=== PATIENT | male | born 1960 | race Two or more races ===

== ENCOUNTER 2019-05-25 20:00 | Inpatient (IN) | payer OTHER ==
[~2019-05-25] VITALS: Ht 172.7 cm; Wt 136.1 kg
--- NOTE | 2019-05-25 20:57 | NUR ---
PT WALKED INTO EMERGENCY ROOM FOR IRRITATION OF ABDOMINAL HERNIA. PT HAS HAD HERNIA CHRONICALLY HOWEVER NOW PAINFUL . PT ALERT AND ORIENTED X 4. WILL CONTINUE TO MONITOR
[2019-05-25 21:10] LABS: BASOPHILS % (AUTO) 0.4 % (0.0-2.0); EOSINOPHILS % (AUTO) 1.5 % (0.0-6.0); HEMATOCRIT 39 % (39-51); HEMOGLOBIN 12.6 g/dL (13.5-17.5); LYMPHOCYTES # (AUTO) 2.2 /CMM (0.8-4.8); LYMPHOCYTES % (AUTO) 20.6 % (20.0-44.0); MEAN CORPUSCULAR HGB CONC 33 g/dl (31.0-36.0); MEAN CORPUSCULAR VOLUME 83 fL (80-96); MONOCYTES # (AUTO) 0.9 /CMM (0.1-1.30); MONOCYTES % (AUTO) 8.2 % (2.0-12.0); NEUTROPHILS # (AUTO) 7.3 /CMM (1.8-8.9); NEUTROPHILS % (AUTO) 69.3 % (43.0-81.0); PLATELET COUNT (AUTO) 285 /CMM (150-450); RED BLOOD CELL COUNT(AUTO) 4.69 MIL/uL (4.5-6.0); WHITE BLOOD COUNT (AUTO) 10.6 K/uL (4.3-11.0)
[2019-05-25 21:34] LABS: ALBUMIN 3.8 g/dL (3.4-5.0); BILIRUBIN,DIRECT 0.1 mg/dL (0.0-0.2); BILIRUBIN,TOTAL 0.6 mg/dL (0.2-1.0); CALCIUM, SERUM 9.5 mg/dL (8.5-10.1); POTASSIUM 3.9 mmol/L (3.5-5.1); TOTAL PROTEIN, SERUM 8.3 g/dL (6.4-8.2)
[2019-05-25] MEDS ORDERED: IOHEXOL-300 100 ML VIAL IV ONE (21:48)
[2019-05-25] MEDS ORDERED: IV NS 0.9% 250 ML IV ONE (21:49)
--- NOTE | 2019-05-25 21:56 | NUR ---
PIV ESTABLISHED LABS DRAWN PT FEELS UNCOMFORTABLE IN GURNEY PLACED IN CHAIR NEXT TO BED REMAINS MONITORED.
--- NOTE | 2019-05-25 22:04 | NUR ---
PT TAKEN TO CT SCAN
--- NOTE | 2019-05-26 02:29 | NUR ---
REPORT GIVEN TO NED JULIO FOR HELGA PT WILL BE TRANSPORTED TO 1ST FLOOR
--- NOTE | 2019-05-26 03:02 | NUR ---
PT TRANSPORTED TO 1ST FLOOR
--- NOTE | 2019-05-26 03:25 | NUR ---
RN NOTES NOTED WITH PERIPHERAL IV LINE ON HIS RIGHT ANTECUBITAL G#20.
[2019-05-26 03:30] VITALS: BP 142/98
[2019-05-26] MEDS ORDERED: ZOLPIDEM TARTRATE 5 MG TABLET PO PRN (03:30)
[2019-05-26] MEDS ORDERED: ACETAMINOPHEN 325 MG TABLET PO PRN (03:30)
[2019-05-26] MEDS ORDERED: MAG HYDROX/AL HYDROX/SIMETH 30 ML UDC PO PRN (03:30)
[2019-05-26] MEDS ORDERED: Z GUARD REMEDY 2 OZ OINT TP PRN (03:30)
[2019-05-26] MEDS ORDERED: ONDANSETRON HCL/PF 4 MG/2 ML VIAL IVP PRN (03:30)
[2019-05-26] MEDS ORDERED: MAGNESIUM HYDROXIDE 30 ML UDC PO PRN (03:30)
[2019-05-26] MEDS ORDERED: MORPHINE SULFATE INJ 2 MG/ML DISP.SYRIN IV PRN (03:30)
--- NOTE | 2019-05-26 03:30 | NUR ---
RN NOTES ADMITTED PATIENT FROM ER TRANSPORTED VIA WHEELCHAIR. ADMISSION PROCESS AND INITIAL PHYSICAL ASSESSMENT INITIATED. ALERT ORIENTED X4, PAIN AROUND THE UMBILICAL REGION DUE TO SWOLLEN UMBILICAL HERNIA, PATIENT STATES THAT HE DOESN'T WANT TO TAKE ANY MEDICATION AT THIS TIME, ORIENTED TO ROOM AND THE USE OF CALL LIGHT, REPOSITIONED FOR COMFORT, SAFETY MEASURES IN PLACE, SKIN IS INTACT, SWOLLEN UMBILICAL HERNIA NOTED, PHOTO TAKEN AND PLACED IN THE PATIENT'S CHART, ALL NEEDS ANTICIPATED. WILL CONTINUE TO MONITOR ACCORDINGLY.
[2019-05-26] MEDS ORDERED: PIPERACILLIN /TAZOBACTAM 3.375 G VIAL IV ONE (05:27)
[2019-05-26] MEDS: IV NS 0.9% 1,000 ML IV PRN (05:34)
[2019-05-26] MEDS ORDERED: PIPERACILLIN /TAZOBACTAM 3.375 G in IV D5W 50 ML IV SCH (06:00)
[2019-05-26] MEDS ORDERED: ZOSYN IVPB 3.375 G in IV D5W 50ml IV ONE (06:00)
--- NOTE | 2019-05-26 07:20 | NUR ---
RN NOTES ALL NEEDS ATTENDED KEPT CLEAN DRY AND COMFORTABLE. ENDORSED TO AM NURSE IN STABLE CONDITION,
--- NOTE | 2019-05-26 07:25 | NUR ---
INITIAL PATIENT LYING IN BED ALARMS ON RAILS UP X 3. . ALERT ORIENTED X4, PAIN AROUND THE UMBILICAL REGION DUE TO SWOLLEN UMBILICAL HERNIA, ORIENTED TO ROOM AND THE USE OF CALL LIGHT, REPOSITIONED FOR COMFORT, SAFETY MEASURES IN PLACE, SKIN IS INTACT, SWOLLEN UMBILICAL HERNIA NOTED, PHOTO ARE TAKEN AND PLACED IN THE PATIENT'S CHART, ALL NEEDS ANTICIPATED. WILL CONTINUE TO MONITOR ACCORDINGLY.
[2019-05-26 07:45] LABS: BASOPHILS % (AUTO) 0.3 % (0.0-2.0); EOSINOPHILS % (AUTO) 3.3 % (0.0-6.0); HEMATOCRIT 36 % (39-51); HEMOGLOBIN 11.7 g/dL (13.5-17.5); LYMPHOCYTES # (AUTO) 2.2 /CMM (0.8-4.8); LYMPHOCYTES % (AUTO) 26.9 % (20.0-44.0); MEAN CORPUSCULAR HGB CONC 32 g/dl (31.0-36.0); MEAN CORPUSCULAR VOLUME 83 fL (80-96); MONOCYTES % (AUTO) 12.6 % (2.0-12.0); NEUTROPHILS # (AUTO) 4.7 /CMM (1.8-8.9); NEUTROPHILS % (AUTO) 56.9 % (43.0-81.0); PLATELET COUNT (AUTO) 242 /CMM (150-450); RED BLOOD CELL COUNT(AUTO) 4.37 MIL/uL (4.5-6.0); WHITE BLOOD COUNT (AUTO) 8.2 K/uL (4.3-11.0)
[2019-05-26 08:00] VITALS: BP 136/86
[2019-05-26 08:03] LABS: ALBUMIN 3.3 g/dL (3.4-5.0); BILIRUBIN,TOTAL 0.8 mg/dL (0.2-1.0); CALCIUM, SERUM 8.7 mg/dL (8.5-10.1); MAGNESIUM 1.9 mg/dL (1.8-2.4); PHOSPHORUS 3.7 mg/dL (2.5-4.9); POTASSIUM 3.6 mmol/L (3.5-5.1); TOTAL PROTEIN, SERUM 7.3 g/dL (6.4-8.2)
[2019-05-26 08:13] LABS: THYROID STIMULATING HORMONE 3.22 uIU/mL (0.358-3.74)
[2019-05-26] MEDS: PIPERACILLIN /TAZOBACTAM 3.375 G in IV D5W 100 ML IV SCH ×2 (12:49→21:09)
[2019-05-26 16:00] VITALS: BP 155/90
--- NOTE | 2019-05-26 19:10 | NUR ---
RN OPENING NOTE: RECEIVED PATIENT IN BED. AWAKE, ALERT AND ORIENTED X4. ON ROOM AIR AND TOLERATING WELL. NO SOB, NO DISTRESS NOTED. BREATHING EQUAL AND UNLABORED. SATURATION >92%. PATIENT IS AMBULATORY WITH STEADY GAIT. REPORTING PAIN OF 6/10 ON HERNIA SITE BUT REFUSES TO TAKE OFFERED PAIN MEDICATION. IV SITE CLEAN, DRY AND INTACT. INFUSION BEING TOLERATED WELL. CALL LIGHT IN REACH. BED LOCKED, LOW AND AT SEMI-LUNSFORD'S POSITION. SIDE RAILS UP X3. NEEDS ANTICIPATED. SAFETY ENSURED AND OBSERVED. WILL CONTINUE TO MONITOR.
[2019-05-26 20:00] VITALS: BP 143/89
[2019-05-27 04:00] VITALS: BP 129/87
[2019-05-27] MEDS: PIPERACILLIN /TAZOBACTAM 3.375 G in IV D5W 100 ML IV SCH ×3 (04:22→21:21)
--- NOTE | 2019-05-27 06:45 | NUR ---
RN CLOSING NOTE: PATIENT STILL IN BED. AWAKE, ALERT AND ORIENTED X4. ON ROOM AIR AND TOLERATING WELL. NO SOB, NO RESPIRATORY DISTRESS NOTED. NO ACUTE CHANGES NOTED ON SHIFT. PATIENT WAS ABLE TO SLEEP COMFORTABLY AND IS INDEPENDENT IN AMBULATION AND HYGIENE. CALL LIGHT IN REACH. BED LOCKED, LOW AND AT SEMI-LUNSFORD'S POSITION. SIDE RAILS UP X3. NEEDS ANTICIPATED. SAFETY ENSURED AND OBSERVED. WILL CONTINUE TO MONITOR. PATIENT AWAITING CONSULT WITH DR. MCGRAW. WILL ENDORSE TO AM SHIFT FOR HELGA.
[2019-05-27 07:39] LABS: BASOPHILS % (AUTO) 0.3 % (0.0-2.0); EOSINOPHILS % (AUTO) 5.5 % (0.0-6.0); HEMATOCRIT 36 % (39-51); HEMOGLOBIN 11.6 g/dL (13.5-17.5); LYMPHOCYTES % (AUTO) 29.7 % (20.0-44.0); MEAN CORPUSCULAR HGB CONC 32 g/dl (31.0-36.0); MEAN CORPUSCULAR VOLUME 84 fL (80-96); MONOCYTES # (AUTO) 0.8 /CMM (0.1-1.30); MONOCYTES % (AUTO) 12.3 % (2.0-12.0); NEUTROPHILS # (AUTO) 3.5 /CMM (1.8-8.9); NEUTROPHILS % (AUTO) 52.2 % (43.0-81.0); PLATELET COUNT (AUTO) 231 /CMM (150-450); RED BLOOD CELL COUNT(AUTO) 4.29 MIL/uL (4.5-6.0); WHITE BLOOD COUNT (AUTO) 6.7 K/uL (4.3-11.0)
--- NOTE | 2019-05-27 07:39 | NUR ---
RN OPENING NOTES Patient received on room air, no sob noted, patient remains a/o x4 at this time and has a full liquid diet. Patient denies pain at this time. R AC 20 with NS of 75 ml per hour running. Awaiting for surgical consult with Dr. Gonzalez. Bed at the lowest setting, call light within reach, side rails up x2.
[2019-05-27 08:00] VITALS: BP 126/86
[2019-05-27 08:02] LABS: CALCIUM, SERUM 8.6 mg/dL (8.5-10.1); CREATININE 0.9 mg/dL (0.6-1.3)
[2019-05-27 12:00] VITALS: BP 129/87
[2019-05-27 16:00] VITALS: BP 148/94
--- NOTE | 2019-05-27 18:25 | NUR ---
RN CLOSING NOTES Patient remains on room air, no sob noted, patient denies pain at this time. Remains a/o x4, on full liquids at this time and to be NPO after midnight today. R AC 20 gauge with NS 75 ml per hour. Patient stated that he will not sign the consent forms until he talks to the surgeon. Surgery is planned tomorrow. Bed at the lowest setting, call light within reach, side rails up x2. Patient able to walk around with good balance. Will give report to NOC RN for HELGA bedside.
--- NOTE | 2019-05-27 19:35 | NUR ---
MS1 RN NOTES RECEIVED IN THE ROOM A/O X4,AMBULATORY,SALINE LOCK RIGHT AC INTACT AND PATENT.NPO POST MIDNIGHT FOR POSSIBLE SURGERY,AWAITING TO BE SEEN BY SURGEON DR LUCIEN Montes.PATIENT WONT SIGN CONSENT TILL SEEN BY SURGEON.SALINE LOCK RIGHT AC INTACT AND PATENT.PATIENT WILL CALL WHEN HE'S READY TO BE RESEARCH NEUROPSYCHOLOGIST WITH IVF.CALL LIGHT IN REACH,NEEDS ANTICIPATED.
[2019-05-27 20:00] VITALS: BP 139/90
[2019-05-27 20:10] VITALS: BP 139/90
[2019-05-27] MEDS: IV NS 0.9% 1,000 ML IV PRN (20:41)
[2019-05-28 04:00] VITALS: BP 131/86
[2019-05-28 04:20] VITALS: BP 131/86
[2019-05-28] MEDS: PIPERACILLIN /TAZOBACTAM 3.375 G in IV D5W 100 ML IV SCH ×3 (05:05→20:28)
--- NOTE | 2019-05-28 06:37 | NUR ---
MS RN NOTES KEPT NPO AFTER BREAKFAST,IVF INFUSING,IV ABX TOLERATED WELL,SCHEDULED FOR SURGERY THIS AFTERNOON AT 1700,PATIENT WANTS TO TALK FIRST WITH SURGEON BEFORE SIGNING CONSENT.IN NO ACUTE DISTRESS.WILL ENDORSE TO JOE JULIO FOR HELGA.
[2019-05-28 08:00] VITALS: BP_SYST 152; BP_DIAS 66; BP_DIAS 99
[2019-05-28] MEDS ORDERED: LIDOCAINE HCL/PF 1% 30 ML SDV ONE (13:21)
[2019-05-28] MEDS ORDERED: BUPIVACAINE MPF 0.5% W/EPI INJ 30 ML VIAL ONE (13:22)
[2019-05-28] MEDS ORDERED: ROCURONIUM BROMIDE 50 MG/5 ML ONE (13:23)
[2019-05-28] MEDS ORDERED: HYDROMORPHONE INJ 2 MG/ML DISP.SYRIN ONE (13:23)
[2019-05-28] MEDS: PANTOPRAZOLE 40 MG VIAL IV SCH (14:00)
--- NOTE | 2019-05-28 14:15 | NUR ---
RN NOTES UNABLE TO ADMIN 1400 DOSE OF PROTONIX, PT IN OR FOR OPERATION
[2019-05-28] MEDS ORDERED: ALBUTEROL FS 2.5 MG/3 ML VIAL.NEB ONE (14:59)
--- NOTE | 2019-05-28 15:30 | NUR ---
RN NOTES PT HAS RETURNED FROM PROCEDURE. HE IS IN STABLE CONDITION, VSS. WILL CONTINUE TO MONITOR FOR ANY CHANGES.
[2019-05-28 16:00] VITALS: BP 136/65
[2019-05-28] MEDS: BENZONATATE 100 MG CAPSULE PO SCH (16:39)
--- NOTE | 2019-05-28 19:25 | NUR ---
RN OPENING NOTES PATIENT IS RESTING COMFORTABLY IN BED AT THIS TIME. HE IS S/P UMBILICAL HERNIA REPAIR. PT TOLERATED PROCEDURE WELL, PAIN IS MANAGEABLE STATES THE PT. TAUGHT HOW TO USE INCENTIVE SPIROMETER. NO ACUTE CHANGES OCCURRED THROUGHOUT THE SHIFT, VITAL SIGNS ARE STABLE, PT NEEDS HAVE BEEN MET. SAFETY MEASURES HAVE BEEN IMPLEMENTED, CALL LIGHT IS WITHIN REACH, BED IS IN LOWEST AND LOCKED POSITION, SIDE RAILS UP X2, PT HAS BEEN ENDORSED TO NIGHTSHIFT RN FOR HELGA. Addendum: 05/28/19 at 1927 by JORDAN WALTER RN RN CLOSING NOTES
[2019-05-28 20:00] VITALS: BP 139/96
--- NOTE | 2019-05-28 20:01 | NUR ---
RN OPENING NOTES PATIENT IN BED AT THIS TIME, A/O X4, BREATHING EVEN AN UNLABORED, NO SO/ACUTE DISTRESS NOTED, S/P UMBILICAL HERNIA REPAIR, DENIES PAIN AT THIS TIME, EDUCATED TO ASK FOR PAIN MEDICATION IN CASE HE NEEDS IT, AND VERBALIZED UNDERSTANDING, ENCOURAGED TO USE THE INCENTIVE SPIROMETER, LFA IV ACCESS PATENT AND INTACT, IV FLUID INFUSING WELL AND PATIENT TOLERATED WELL, SAFETY MEASURES IN PLACED, CALL LIGHT IS WITHIN REACH, BED LOCKED AND IN LOWEST POSITION, SIDE RAILS UP X2, WILL CONTINUE TO MONITOR CLOSELY.
[2019-05-28] MEDS ORDERED: ZOLPIDEM TARTRATE 10 MG TABLET PO PRN (20:30)
[2019-05-29 04:00] VITALS: BP 150/86
[2019-05-29] MEDS: PIPERACILLIN /TAZOBACTAM 3.375 G in IV D5W 100 ML IV SCH ×3 (04:50→21:25)
--- NOTE | 2019-05-29 06:48 | NUR ---
RN NOTES, NO SIGNIFICANT CHANGE IN CONDITION DURING THE NIGHT, S/P VENTRAL HERNIA REPAIR, PATIENT REFUSED PAIN MEDICATION WHEN OFFERED, HE STATES PAIN IS TOLERABLE, WILL ENDORSED CONTINUITY OF CARE TO ONCOMING NURSE.
[2019-05-29 07:25] LABS: BASOPHILS % (AUTO) 0.3 % (0.0-2.0); EOSINOPHILS % (AUTO) 0.1 % (0.0-6.0); HEMATOCRIT 38 % (39-51); HEMOGLOBIN 12.3 g/dL (13.5-17.5); LYMPHOCYTES # (AUTO) 1.5 /CMM (0.8-4.8); LYMPHOCYTES % (AUTO) 16.9 % (20.0-44.0); MEAN CORPUSCULAR HGB CONC 32 g/dl (31.0-36.0); MEAN CORPUSCULAR VOLUME 84 fL (80-96); MONOCYTES # (AUTO) 0.5 /CMM (0.1-1.30); MONOCYTES % (AUTO) 5.9 % (2.0-12.0); NEUTROPHILS # (AUTO) 6.7 /CMM (1.8-8.9); NEUTROPHILS % (AUTO) 76.8 % (43.0-81.0); PLATELET COUNT (AUTO) 297 /CMM (150-450); RED BLOOD CELL COUNT(AUTO) 4.58 MIL/uL (4.5-6.0); WHITE BLOOD COUNT (AUTO) 8.7 K/uL (4.3-11.0)
[2019-05-29 07:40] LABS: CALCIUM, SERUM 8.8 mg/dL (8.5-10.1)
[2019-05-29 08:00] VITALS: BP 149/94
[2019-05-29] MEDS: BENZONATATE 100 MG CAPSULE PO SCH ×3 (09:22→17:35)
--- NOTE | 2019-05-29 09:23 | NUR ---
RN NOTES ADMINISTERED TYLENOL 650 MG PO PRN FOR PAIN 09/08 PET PATIENT REQUEST, ALSO ADMINISTERED SCHEDULED MEDICATION, PATIENT AMBULATORY GOING BATHROOM, CALL LIGHT WITHIN TO REACH, CONTINUED MONITORING.
[2019-05-29] MEDS: HYDROCODONE BIT/HOMATROPINE 5 ML UDC PO PRN ×2 (11:57→17:51)
--- NOTE | 2019-05-29 11:57 | NUR ---
rn notes administered hydrocodone surup5 ml po prn for sore through, and cough per patient request, v/s wnl, continued monitoring.
[2019-05-29 12:00] VITALS: BP 149/94
[2019-05-29] MEDS: PANTOPRAZOLE 40 MG VIAL IV SCH (13:48)
--- NOTE | 2019-05-29 17:51 | NUR ---
RN NOTES ADMINISTERED HYDROCODONE SYRUP 5 ML PO PRN PER PATIENT REQUEST, V/S TAKEN BP -127/75, P-69, CONTINUED MONITORING.
--- NOTE | 2019-05-29 19:30 | NUR ---
MS RN OPENING NOTES RECEIVED PATIENT FROM MORNING SHIFT, ALERT AND ORIENTED X 3. VERBALLY RESPONSIVE AND ABLE TO FOLLOW DIRECTIONS. BREATHING REGULAR AND UNLABORED ON ROOM AIR. RIGHT FOREARM G20 IV LINE INTACT AND PATENT FLUSHING WELL WITH NO BLEEDING OR S/S OF INFECTION SEEN. BODY ASSESSMENT DONE, OBSERVED WITH ABDOMINAL INCISION WITH CASIE INTACT, NO BLEEDING NOTED DRESSING CLEAN AND DRY. ABDOMINAL BINDER IN PLACE. NO COMPLAINTS OF PAIN/DISCOMFORT REPORTED OF THE TIME. BED LOW AND LOCKED ON SEMI FOWLERS POSITION. CALL LIGHT IN REACH. WILL CONTINUE TO MONITOR.
[2019-05-29 20:00] VITALS: BP 130/86
--- NOTE | 2019-05-29 21:00 | NUR ---
MS RN NOTES PATIENT REFUSED TO BE DISCHARGED TO HOME AND WANTS TO SEE HIM FIRST BEFORE GOING. NOTIFIED AND PER HIM HE'S NOT GOING TO BE ABLE TO SEE THE PATIENT TONIGHT BUT HE'S AVAILABLE TOMORROW. PATIENT MADE AWARE AND DECIDED TO BE DISCHARGED TOMORROW, AGREED.
[2019-05-30] MEDS: IV NS 0.9% 1,000 ML IV PRN (02:42)
[2019-05-30 04:00] VITALS: BP 125/73
[2019-05-30] MEDS: PIPERACILLIN /TAZOBACTAM 3.375 G in IV D5W 100 ML IV SCH ×3 (05:02→20:19)
--- NOTE | 2019-05-30 06:35 | NUR ---
MS RN CLOSING NOTES PATIENT IN BED ALERT AND ORIENTED X 3. VERBALLY RESPONSIVE AND ABLE TO FOLLOW DIRECTIONS. BREATHING REGULAR AND UNLABORED ON ROOM AIR. RIGHT FOREARM G20 IV LINE INTACT AND INFUSING WELL. ABDOMINAL INCISION WITH CASIE INTACT, NO BLEEDING NOTED DRESSING CLEAN AND DRY. ABDOMINAL BINDER IN PLACE. NO COMPLAINTS OF PAIN/DISCOMFORT REPORTED THE WHOLE SHIFT. BED LOW AND LOCKED ON SEMI FOWLERS POSITION. CALL LIGHT IN REACH. WILL ENDORSE TO MORNING SHIFT FOR HELGA.
--- NOTE | 2019-05-30 07:00 | NUR ---
MS RN OPENING NOTES PATIENT IS RESTING COMFORABLEY ON IS SIDE. ALERT AND ORIENTED X 3. VERBALLY RESPONSIVE AND ABLE TO FOLLOW DIRECTIONS. BREATHING REGULAR AND UNLABORED ON ROOM AIR. RIGHT FOREARM G20 IV LINE INTACT AND PATENT FLUSHING WELL WITH NO BLEEDING OR S/S OF INFECTION SEEN OR INFILTRATION . OBSERVED WITH ABDOMINAL INCISION WITH CASIE INTACT, NO BLEEDING NOTED DRESSING CLEAN AND DRY DID NOT OPEN WOUND HAS NOT SEEN WOUND . ABDOMINAL BINDER IN PLACE. NO COMPLAINTS OF PAIN/DISCOMFORT REPORTED OF THE TIME. CALL LIGHT WITH IN REACH BED LOCKED AND LOWEST POSITION ALL SAFELY MEASURE IMPLEMENTED PER HOSPITAL POLICY
[2019-05-30 08:00] VITALS: BP 145/86
[2019-05-30] MEDS: BENZONATATE 100 MG CAPSULE PO SCH ×3 (08:43→18:01)
[2019-05-30 12:00] VITALS: BP 145/86
[2019-05-30] MEDS: PANTOPRAZOLE 40 MG VIAL IV SCH (13:09)
--- NOTE | 2019-05-30 17:00 | NUR ---
RN MS1 PATIENT SEEM AXIOUS. AND WANTING TO GO HOME. PATIENT IS CONCERNED THAT THE DOCTOR HAS NOT SEEN HIS SURGURY SITE. PATIENT AT TIMES SEEMS ANGRY AT THE SITUATION. THE PATIENT DOES NOT WANT TO LEAVE UNTIL DR. JACOBO CHUNG SEES THE PATIENT. DR CARROLL WAS CALLED AND INFORMED ABOUT THE PATIENT. STATED HE WILL BE HERE IN [place] IN THE EVENING TO SEE THE PATIENT
--- NOTE | 2019-05-30 19:00 | NUR ---
RN MS 1 CLOSING PATIENT IS DISCHARGE PAPERS SIGN, PATIENT A/O X3 COOPERATIVE BUT IS IRRITATED ABOUT DR NOT BEING HERE TO SEE THE PATIENT THE PATIENT REFUSED TO LEAVE THE HOSPITAL UNTIL HE SEEM HIM. PATIENT IS ON RA AND SATURATING WELL. NO SOB, NO PAIN, NO ACUTE RESPIRATORY DISTRESS. WOUND IS CLEAN AND DRY DID NOT ASSESS WOUNDS BECAUSE DR HAS NOT CHANGE THE WOUND SITE FOR THE FIRST TIME . BED LOCKED AND LOWEST POSITION CALL LIGHT WITH IN REACH ALL SAFETY MEASURE IMPLEMENTED PER HOSPITAL POLICY. ENDORSED TO PM SHIFT .
[2019-05-30 20:00] VITALS: BP 137/91
--- NOTE | 2019-05-30 20:55 | NUR ---
RN NOTES [address] MCGRAW. PATIENT READY FOR DISCHARGE. IV SITE PULLED OUT WITH GAUZE ON. APPLIED 4X4 TO ABDOMINAL INCISION, TAPED, APPLIED ABDOMINAL BINDER. PATIENT SATISFIED WITH EVERYTHING. PATIENT CALLED FOR PICKUP. PATIENT SIGNED D/C PAPERS DURING AM SHIFT. ALL BELONGINGS WITH PATIENT.
--- NOTE | 2019-05-30 21:40 | NUR ---
PATIENT LEFT THE UNIT AT 0, PER CHARGE NURSE, SATISH. PATIENT TOOK ALL BELONGINGS WITH HIM.
--- NOTE | 2019-05-30 21:41 | NUR ---
PATIENT STABLE PRIOR TO DISCHARGE. SEEN BY DOCTOR MCGRAW.
== END 2019-05-30 21:10 | disposition home or self-care (01) | DRG 227 ==
LOC: ER 20:04 → MEDSG1 05-26 02:48
PROVIDERS: ADMIT Nurse Practitioner Acute Care; ATTEND Internal Medicine
DX: K43.6 Other and unspecified ventral hernia with obstruction, without gangrene (principal); E66.01 Morbid (severe) obesity due to excess calories; L03.311 Cellulitis of abdominal wall; I10 Essential (primary) hypertension; D64.9 Anemia, unspecified; K57.30 Diverticulosis of large intestine without perforation or abscess without bleeding; Z68.42 Body mass index [BMI] 45.0-49.9, adult; R73.03 Prediabetes; G47.33 Obstructive sleep apnea (adult) (pediatric)
CPT/HCPCS: 36415; 70220-TC; 71045-TC; 80048-TC; 80053-TC; 80061-TC; 80076-TC; 83540-TC; 83605-TC; 83690-TC; 83735-TC; 84100-TC; 84443-TC; 85025-TC; 85730-TC; 87081-TC; 88305-TC; A6403; C9113; G0378; J1170; J2543; J3490; J7030; J7050; J7060; Q9967

== ENCOUNTER 2020-08-19 15:28 | Inpatient (IN) | payer OTHER ==
[~2020-08-19] VITALS: Ht 170.2 cm; Wt 140.6 kg
--- NOTE | 2020-08-19 15:45 | NUR ---
HEADACHE AND VOMITING X 1 THIS MORNING,THOUGHT IT WAS DUE TO HIGH BLOOD PRESSURE. PATIENT A/OX4, BREATHING EVEN AND UNLABORED, NO SOB NOTED, NEEDS ATTENDED. KEPT COMFORTABLE.
--- NOTE | 2020-08-19 15:50 | NUR ---
PT SEEN AND EXAMINED BY DR. HILTON
[2020-08-19] MEDS ORDERED: AMLODIPINE BESYLATE 5 MG TABLET PO ONE (16:00)
[2020-08-19] MEDS ORDERED: AMLODIPINE BESYLATE 5 MG TABLET ONE (16:02)
--- NOTE | 2020-08-19 16:07 | NUR ---
taken to radiology for ct.
[2020-08-19 16:30] LABS: BASOPHILS % (AUTO) 0.3 % (0.0-2.0); EOSINOPHILS % (AUTO) 0.4 % (0.0-6.0); HEMATOCRIT 40 % (39-51); HEMOGLOBIN 13.3 g/dL (13.5-17.5); MEAN CORPUSCULAR HGB CONC 33 g/dl (31.0-36.0); MEAN CORPUSCULAR VOLUME 89 fL (80-96); MONOCYTES # (AUTO) 0.4 /CMM (0.1-1.30); MONOCYTES % (AUTO) 4.5 % (2.0-12.0); NEUTROPHILS # (AUTO) 7.1 /CMM (1.8-8.9); NEUTROPHILS % (AUTO) 82.8 % (43.0-81.0); PLATELET COUNT (AUTO) 249 /CMM (150-450); RED BLOOD CELL COUNT(AUTO) 4.53 MIL/uL (4.5-6.0); WHITE BLOOD COUNT (AUTO) 8.6 K/uL (4.3-11.0)
--- NOTE | 2020-08-19 16:42 | NUR ---
covid swab sent
[2020-08-19 16:53] LABS: ALANINE AMINOTRANSFERASE 37 U/L (12-78); ALKALINE PHOSPHATASE 52 U/L (46-116); ASPARTATE AMINOTRANSFERASE 24 U/L (15-37); BILIRUBIN,DIRECT 0.1 mg/dL (0.0-0.2); BILIRUBIN,TOTAL 0.3 mg/dL (0.2-1.0); CALCIUM, SERUM 9.4 mg/dL (8.5-10.1); CARBON DIOXIDE 30 mmol/L (21-32); CHLORIDE 103 mmol/L (98-107); CREATININE 0.9 mg/dL (0.6-1.3); GLUCOSE 124 mg/dL (74-106); POTASSIUM 3.9 mmol/L (3.5-5.1); SODIUM SERUM 142 mmol/L (136-145); TOTAL PROTEIN, SERUM 8.4 g/dL (6.4-8.2); UREA NITROGEN, BLOOD 19 mg/dL (7-18)
--- NOTE | 2020-08-19 17:19 | NUR ---
EPIC CALLED ON-CALL PAGED.
[2020-08-19] MEDS ORDERED: ASPIRIN 325 MG TABLET PO ONE (17:30)
[2020-08-19] MEDS ORDERED: ASPIRIN 325 MG TABLET ONE (17:34)
[2020-08-19] MEDS ORDERED: Z GUARD REMEDY 2 OZ OINT TP PRN (18:00)
[2020-08-19] MEDS ORDERED: CLONIDINE HCL 0.1 MG TABLET PO PRN (18:00)
[2020-08-19] MEDS ORDERED: MAGNESIUM HYDROXIDE 30 ML UDC PO PRN (18:00)
[2020-08-19] MEDS ORDERED: MAG HYDROX/AL HYDROX/SIMETH 30 ML UDC PO PRN (18:00)
[2020-08-19] MEDS ORDERED: HYDROCODONE/APAP 5/325MG TABLET PO PRN (18:00)
[2020-08-19] MEDS ORDERED: ACETAMINOPHEN 325 MG TABLET PO PRN (18:00)
[2020-08-19] MEDS ORDERED: ONDANSETRON HCL/PF 4 MG/2 ML VIAL IVP PRN (18:00)
--- NOTE | 2020-08-19 18:06 | NUR ---
BED 105
--- NOTE | 2020-08-19 18:15 | NUR ---
TOOK ASA 325MG AT HOME TODAY VENEER JOINTER RETURNER.
--- NOTE | 2020-08-19 18:16 | NUR ---
REPORT GIVEN TO JAM JULIO AT MS1.
--- NOTE | 2020-08-19 18:16 | NUR ---
BED 110
[2020-08-19] MEDS ORDERED: ENOXAPARIN SODIUM 40 MG/0.4 ML DISP.SYRIN SQ SCH (19:04)
[2020-08-19 19:25] VITALS: BP 137/80
--- NOTE | 2020-08-19 19:25 | NUR ---
SALES SUPPORT ASSOCIATECOLOR PASTE MIXER NOTE RECEIVED PATIENT VIA GURNEY. AMBULATED TO BED WITH STEADY GAIT. TOLERATING ROOM AIR. RESPIRATIONS ARE EVEN AND UNLABORED, NO S/S SOB NOTED. NO C/O PAIN AT THIS TIME. EXTERNAL TELE MONITOR APPLIED READS SINUS RHYTHM HR 8. IN NO APPARENT DISTRESS. IV ACCESS IN LAC#18 PATENT AND SALINE LOCKED. INATAL PHYSICAL ASSESSMENT COMPLETED AT THIS TIME. SKIN ASSESSMENT, SKIN INTACT. LOAD DROPPER OBTAINED VITALS SIGNS, BELONGINGS LIST COMPLETED. BED IS LOW AND LOCKED, HOB ELEVATED IN SEMI FOWLERS, SIDE RAILS UP X2, CALL LIGHT WITHIN REACH. EXPLAINED USE. AT BEDSIDE, TOOK PATIENTS APPLE WATCH HOME. WILL CONTINUE TO MONITOR THROUGHOUT SHIFT.
--- NOTE | 2020-08-19 19:29 | NUR ---
PATIENT TRANSFERRED TO ROOM 110 VIA ACLS PROTOCOL, PATIENT INS TABLE CONDITION.
[2020-08-19] MEDS: NIFEdipine XL (30MG) 30 MG TAB PO SCH (20:08)
[2020-08-20] VITALS: BP 125/82
--- NOTE | 2020-08-20 03:56 | NUR ---
rn telemetry note patient refused 0400 vitals check. states he wants to sleep.
--- NOTE | 2020-08-20 06:22 | NUR ---
PERIPHERAL VASCULAR TECH CLOSING NOTE RESTING IN BED. TOLERATING ROOM AIR.NO RESP DISTRESS. NO C/O PAIN. TELE MONITOR APPLIED READS SINUS RHYTHM. NO DISTRESS. IV ACCESS MAINTAINED IN LAC#18. BED IS LOW AND LOCKED, HOB ELEVATED IN SEMI FOWLERS, SIDE RAILS UP X2, CALL LIGHT WITHIN REACH. WILL ENDORSE TO ONCOMING SHIFT
[2020-08-20 06:25] LABS: BASOPHILS % (AUTO) 0.4 % (0.0-2.0); EOSINOPHILS % (AUTO) 3.7 % (0.0-6.0); HEMATOCRIT 39 % (39-51); LYMPHOCYTES % (AUTO) 23.6 % (20.0-44.0); MEAN CORPUSCULAR HGB CONC 33 g/dl (31.0-36.0); MEAN CORPUSCULAR VOLUME 89 fL (80-96); MONOCYTES # (AUTO) 0.7 /CMM (0.1-1.30); MONOCYTES % (AUTO) 8.4 % (2.0-12.0); NEUTROPHILS # (AUTO) 5.4 /CMM (1.8-8.9); NEUTROPHILS % (AUTO) 63.9 % (43.0-81.0); PLATELET COUNT (AUTO) 250 /CMM (150-450); RED BLOOD CELL COUNT(AUTO) 4.41 MIL/uL (4.5-6.0); WHITE BLOOD COUNT (AUTO) 8.5 K/uL (4.3-11.0)
[2020-08-20 06:38] LABS: CALCIUM, SERUM 8.7 mg/dL (8.5-10.1); MAGNESIUM 2.2 mg/dL (1.8-2.4); PHOSPHORUS 3.8 mg/dL (2.5-4.9); POTASSIUM 3.2 mmol/L (3.5-5.1)
[2020-08-20 07:02] LABS: CREATININE 0.7 mg/dL (0.6-1.3)
--- NOTE | 2020-08-20 07:23 | NUR ---
SENIOR MATERIALS PLANNER OPENING NOTE RECEIVED PATIENT RESTING IN BED. NO DISTRESS OR PAIN NOTED. TELE MONITOR READS SINUS RHYTHM. IV ACCESS LEFT AC#18 - INTACT, SALINE LOCKED. SAFETY PRECAUTIONS MAINTAINED. CALL LIGHT WITHIN REACH. WILL CONTINUE TO MONITOR.
[2020-08-20] MEDS ORDERED: POTASSIUM CHLORIDE 20 MEQ TAB.PRT.SR PO ONE (08:00)
[2020-08-20 08:23] VITALS: BP 149/90
[2020-08-20] MEDS: NIFEdipine XL (30MG) 30 MG TAB PO SCH (08:23)
[2020-08-20] MEDS ORDERED: NIFE-35 PO (16:41)
--- NOTE | 2020-08-20 17:47 | NUR ---
DISCHARGE NOTE PATIENT DISCHARGED VIA PRIVATE CAR HOME. PATIENT MEDICALLY STABLE. NO PAIN OR DISTRESS NOTED. NO CHEST PAIN NOTED. SKIN INTACT. ALL EXITCARE AND EDUCATION GONE OVER WITH PATIENT. PATIENT FULLY CLOTHED WITH SHOES. IV REMOVED, WRISTBAND REMOVED. PATIENT ACCOMPANIED BY , JAREN.
== END 2020-08-20 17:41 | disposition home or self-care (01) | DRG 199 ==
LOC: ER 15:34 → TELE1 19:01
PROVIDERS: ADMIT Internal Medicine; ATTEND Internal Medicine
DX: I16.0 Hypertensive urgency (principal); E66.01 Morbid (severe) obesity due to excess calories; R51.9 Headache, unspecified; E87.6 Hypokalemia; I10 Essential (primary) hypertension; R94.31 Abnormal electrocardiogram [ECG] [EKG]; G47.33 Obstructive sleep apnea (adult) (pediatric); Z68.42 Body mass index [BMI] 45.0-49.9, adult; Z20.822 Contact with and (suspected) exposure to COVID-19
CPT/HCPCS: 36415; 70450-TC; 71045-TC; 80048-TC; 80061-TC; 80076-TC; 83735-TC; 84100-TC; 84484-TC; 85025-TC; 87081-TC; 93307-TC; C9803; G0378; J1650

== ENCOUNTER 2021-12-28 09:58 | Inpatient (IN) | payer OTHER ==
[~2021-12-28] VITALS: Ht 172.7 cm; Wt 133.4 kg
[~2021-12-28 09:58] MED LIST: NIFE-35 PO
[2021-12-28] MEDS ORDERED: MORPHINE SULFATE INJ 4 MG/ML DISP.SYRIN ONE (10:15)
[2021-12-28] MEDS ORDERED: FAMOTIDINE/PF INJ 20 MG/2 ML VIAL IV ONE ×2 (10:15→10:30)
[2021-12-28] MEDS ORDERED: ONDANSETRON HCL/PF 4 MG/2 ML VIAL ONE (10:15)
[2021-12-28] MEDS ORDERED: ONDANSETRON HCL/PF 4 MG/2 ML VIAL IVP ONE (10:30)
[2021-12-28] MEDS ORDERED: IV NS 0.9% 500 ML BAG IV ONE (10:30)
[2021-12-28] MEDS ORDERED: MORPHINE SULFATE INJ 2 MG/ML DISP.SYRIN IV ONE (10:30)
[2021-12-28 10:40] LABS: BASOPHILS % (AUTO) 0.4 % (0.0-2.0); EOSINOPHILS % (AUTO) 0.9 % (0.0-6.0); HEMATOCRIT 38 % (39-51); HEMOGLOBIN 11.9 g/dL (13.5-17.5); LYMPHOCYTES # (AUTO) 1.3 K/uL (0.8-4.8); MEAN CORPUSCULAR HGB CONC 31 g/dl (31.0-36.0); MEAN CORPUSCULAR VOLUME 81 fL (80-96); MONOCYTES # (AUTO) 0.4 K/uL (0.1-1.30); NEUTROPHILS # (AUTO) 4.3 K/uL (1.8-8.9); NEUTROPHILS % (AUTO) 70.7 % (43.0-81.0); PLATELET COUNT (AUTO) 215 K/uL (150-450); RED BLOOD CELL COUNT(AUTO) 4.65 MIL/uL (4.5-6.0)
--- NOTE | 2021-12-28 10:40 | NUR ---
IV LINE ESTABLISHED ON LAC #20, BLOOD DRAWN AND SENT TO LAB.
[2021-12-28 10:47] LABS: CALCIUM, SERUM 9.1 mg/dL (8.5-10.1); CARBON DIOXIDE 27 mmol/L (21-32); CHLORIDE 103 mmol/L (98-107); CREATININE 0.9 mg/dL (0.6-1.3); GLUCOSE 134 mg/dL (74-106); SODIUM SERUM 140 mmol/L (136-145); UREA NITROGEN, BLOOD 18 mg/dL (7-18)
[2021-12-28 10:54] LABS: ALANINE AMINOTRANSFERASE 70 U/L (12-78); ALBUMIN 3.8 g/dL (3.4-5.0); ALKALINE PHOSPHATASE 49 U/L (46-116); ASPARTATE AMINOTRANSFERASE 45 U/L (15-37); BILIRUBIN,DIRECT 0.1 mg/dL (0.0-0.2); BILIRUBIN,TOTAL 0.4 mg/dL (0.2-1.0); LIPASE 94 U/L (73-393); TOTAL PROTEIN, SERUM 7.7 g/dL (6.4-8.2)
--- NOTE | 2021-12-28 10:55 | NUR ---
PT UNABLE TO PROVIDE URINE AT THIS TIME; URINAL PROVIDED AT BEDSIDE
--- NOTE | 2021-12-28 11:03 | NUR ---
PT TAKEN TO RADIOLOGY FOR CT
[2021-12-28 11:48] LABS: BILIRUBIN,URINE NEGATIVE (NEGATIVE); COLOR,URINE YELLOW (YELLOW); LEUKOCYTE ESTERASE ,URINE NEGATIVE (NEGATIVE); NITRITE, URINE NEGATIVE (NEGATIVE); PROTEIN,URINE 30 mg/dl (NEGATIVE); UGLUCOSE NEGATIVE (NEGATIVE); UROBILINOGEN,URINE 0.2 EU/dL (0.2)
[2021-12-28 12:13] LABS: BACTERIA,URINE None seen /HPF (None Seen); RBC,URINE 0-2 /HPF (0-2); SQUAMOUS EPITHELIAL CELL,UR Rare /HPF (None Seen); WBC,URINE 0-2 /HPF (0-3)
--- NOTE | 2021-12-28 12:55 | NUR ---
MAYRA HERNANDEZ SENT TO LAB
[2021-12-28] MEDS ORDERED: ACETAMINOPHEN 325 MG TABLET PO PRN (13:00)
[2021-12-28] MEDS ORDERED: MAGNESIUM HYDROXIDE 30 ML UDC PO PRN (13:00)
[2021-12-28] MEDS ORDERED: ONDANSETRON HCL/PF 4 MG/2 ML VIAL IVP PRN (13:00)
[2021-12-28] MEDS ORDERED: Z GUARD REMEDY 4 OZ OINT TP PRN (13:00)
[2021-12-28] MEDS ORDERED: MAG HYDROX/AL HYDROX/SIMETH 30 ML UDC PO PRN (13:00)
[2021-12-28] MEDS ORDERED: MORPHINE SULFATE INJ 2 MG/ML DISP.SYRIN IV PRN (13:00)
[2021-12-28] MEDS ORDERED: IV NS 0.9% 250 ML IV ONE (13:26)
[2021-12-28] MEDS ORDERED: IOHEXOL-350 100 ML VIAL IV ONE (13:26)
--- NOTE | 2021-12-28 14:35 | NUR ---
PT REPORT GIVEN TO NORI CHERRY.
--- NOTE | 2021-12-28 15:10 | NUR ---
PT TRANSFERRED TO 312-2 VIA [facility] ACLS PROTOCOL. WARM HANDOFF GIVEN TO NORI CHERRY.
--- NOTE | 2021-12-28 15:30 | NUR ---
IRIDOLOGIST NOTES ADMITTED THIS 61 Y/O MALE PATIENT FROM E.R. @1455, TRANSPORTED VIA [facility], ACCOMPANIED BY ER NURSE NORI ZHANG. PATIENT ABLE TO AMBULATE FROM THE GURNEY TO THE BED, WITH STEADY GAIT. PATIENT IS ALERT AND ORIENTED X4, VERBALLY RESPONSIVE, NO SIGNS OF ACUTE DISTRESS NOTED. ON ROOM AIR, TOLERATING WELL, NO SOB NOTED, BREATHING EVEN AND UNLABORED. NOTED WITH IV ACCESS ON LEFT ANTECUBITAL AREA #18G, INTACT AND PATENT, SALINE LOCKED. PATIENT STILL WITH C/O DISCOMFORT ON ABDOMINAL AREA. NO NAUSEA OR VOMITING, LUNGS CLEAR TO AUSCULTATION. PLACED PATIENT ON BUILDING CONSTRUCTION IRONWORKER, CURRENTLY SHOWING SINUS HERNESTO, HR @56. ROUTINE ADMISSION CARE PROVIDED. ORIENTED PATIENT TO ROOM AND STAFF. PATIENTS SKIN GENERALLY INTACT. VITAL SIGNS TAKEN AND RECORDED. WILL CONTINUE TO MONITOR PATIENT .
[2021-12-28 16:00] VITALS: BP 123/79
[2021-12-28] MEDS: VALSARTAN 80 MG TABLET PO SCH (17:26)
--- NOTE | 2021-12-28 18:45 | NUR ---
RN CLOSING NOTES PATIENT AWAKE, WALKING INSIDE ROOM ON HIS CELLPHONE TALKING TO SOMEONE. NO S/SX OF PAIN AT THIS TIME. ON ROOM AIR, NO SOB NOTED. ON TELE MONITOR SHOWING SINUS RHYTHM, HR @80. IV ACCESS ON LEFT AC #18G, INTACT AND PATENT, SALINE LOCKED, FLUSHES WELL. SAFETY MEASURE IN PLACE. WILL ENDORSE TO NEXT SHIFT FOR CONTINUITY OF CARE.
--- NOTE | 2021-12-28 19:32 | NUR ---
DREDGE OPERATOR SUPERVISOR OPENING NOTES PATIENT RECEIVED RESTING IN BED COMFORTABLY; A/OX4, BREATHING EVEN AND UNLABORED; NO SOB NOTED; TOLERATING ROOM AIR WELL; PATIENT ABLE TO MAKE NEEDS KNOWN; PATIENT DENIES PAIN AT THIS TIME; TELE MONITOR READ NORMAL SINUS RHYTHM; L AC #20 G S/L INTACT AND PATENT, FLUSHING WELL; NO S/S OF REDNESS OR INFILTRATION NOTED; SAFETY PRECAUTIONS IMPLEMENTED; BED LOCKED IN LOW POSITION; SIDE RAILSX2; CALL LIGHT WITHIN REACH; WILL CONT PLAN OF CARE
[2021-12-28 20:00] VITALS: BP 114/69
[2021-12-28 20:58] VITALS: BP 114/69
[2021-12-29] VITALS: BP 103/52
[2021-12-29 04:00] VITALS: BP 113/68
[2021-12-29 06:49] LABS: BASOPHILS % (AUTO) 0.4 % (0.0-2.0); EOSINOPHILS % (AUTO) 3.1 % (0.0-6.0); HEMATOCRIT 34 % (39-51); HEMOGLOBIN 10.8 g/dL (13.5-17.5); LYMPHOCYTES # (AUTO) 1.3 K/uL (0.8-4.8); LYMPHOCYTES % (AUTO) 27.1 % (20.0-44.0); MEAN CORPUSCULAR HGB CONC 32 g/dl (31.0-36.0); MEAN CORPUSCULAR VOLUME 81 fL (80-96); MONOCYTES # (AUTO) 0.5 K/uL (0.1-1.30); MONOCYTES % (AUTO) 10.2 % (2.0-12.0); NEUTROPHILS # (AUTO) 2.9 K/uL (1.8-8.9); NEUTROPHILS % (AUTO) 59.2 % (43.0-81.0); PLATELET COUNT (AUTO) 192 K/uL (150-450); WHITE BLOOD COUNT (AUTO) 4.9 K/uL (4.3-11.0)
--- NOTE | 2021-12-29 06:51 | NUR ---
COLLEGE OR UNIVERSITY BUSINESS MANAGER OPENING NOTES PATIENT RESTING IN BED COMFORTABLY; A/OX4, BREATHING EVEN AND UNLABORED; NO SOB NOTED; TOLERATING ROOM AIR WELL; PATIENT ABLE TO MAKE NEEDS KNOWN; PATIENT DENIES PAIN AT THIS TIME; TELE MONITOR READ NORMAL SINUS RHYTHM; L AC #20 G S/L INTACT AND PATENT, FLUSHING WELL; NO S/S OF REDNESS OR INFILTRATION NOTED; ALL NEEDS RENDERED; SAFETY PRECAUTIONS IMPLEMENTED; BED LOCKED IN LOW POSITION; SIDE RAILSX2; CALL LIGHT WITHIN REACH; WILL ENDORSE HELGA TO ONCOMING SHIFT Addendum: 12/29/21 at 0652 by SURAJ REYES RN CLOSING NOTES
[2021-12-29 07:14] LABS: CALCIUM, SERUM 8.6 mg/dL (8.5-10.1); CREATININE 0.9 mg/dL (0.6-1.3); MAGNESIUM 2.1 mg/dL (1.8-2.4); POTASSIUM 4.1 mmol/L (3.5-5.1)
[2021-12-29 08:00] VITALS: BP 102/77
--- NOTE | 2021-12-29 08:08 | NUR ---
RAIMANN MACHINE OPERATOR OPENING NOTES PATIENT RECEIVED RESTING IN BED; A/OX4, NO SOB NOTED; NO C/O PAIN AT THIS TIME, NO S/S OF RFESPIRATORY DISTRESS.TOLERATING ROOM AIR WELL; PATIENT ABLE TO MAKE NEEDS KNOWN; TELE MONITOR READ NORMAL SINUS RHYTHM; L AC #20 G S/L INTACT AND PATENT; SAFETY PRECAUTIONS IMPLEMENTED; BED LOCKED IN LOW POSITION; SIDE RAILS UP X2; CALL LIGHT WITHIN REACH; WILL CONTINUE PLAN OF CARE
[2021-12-29] MEDS: VALSARTAN 80 MG TABLET PO SCH ×2 (08:51→09:00)
[2021-12-29] MEDS ORDERED: ATORVASTATIN 10 MG TABLET PO SCH (09:00)
[2021-12-29] MEDS ORDERED: PANTOPRAZOLE 40 MG TABLET.DR PO SCH (09:00)
[2021-12-29] MEDS ORDERED: ASPIRIN 81 MG TAB.CHEW PO SCH (09:00)
[2021-12-29 09:19] LABS: CHOLESTEROL 181 mg/dL (<200); HDL CHOLESTEROL 35 mg/dL (40-60); LDL 122 mg/dL (0-99); TRIGLYCERIDES 155 mg/dL (30-150)
[2021-12-29] MEDS ORDERED: ANESTHESIA TRAY IN PYXIS 1 EA TRAY MC ONE (10:54)
--- NOTE | 2021-12-29 11:06 | NUR ---
SPORTS ANNOUNCER NOTES PT AWAKE, ALERT AND ORIENTED, DENIES PAIN, NOT IN DISTRESS, WALKS INSIDE HIS ROOM WITH STEADY GAIT, FOR EGD TODAY, PT SIGNED ALL CONSENTS, CHECKLIST COMPLETED, PICKED UP BY O.R. STAFF, LEFT VIA BED IN STABLE CONDITION.
[2021-12-29 12:37] VITALS: BP 121/71
--- NOTE | 2021-12-29 12:38 | NUR ---
RN MS NOTES PT BACK FROM EGD, AWAKE, ALERT AND ORIENTED, DENIES PAIN OR ANY DISCOMFORT, VITALS TAKEN AND RECORDED, POST PROCEDURE ORDERS RECEIVED, NOTED AND CARRIED OUT.
[2021-12-29] MEDS ORDERED: IOHEXOL-350 100 ML VIAL IV ONE (15:11)
[2021-12-29] MEDS ORDERED: NITROGLYCERIN 0.4 MG/TAB BOTTLE ONE (15:11)
[2021-12-29] MEDS ORDERED: IV NS 0.9% 250 ML IV ONE (15:12)
[2021-12-29] MEDS ORDERED: CT SWABBABLE VALVE TRANS SET 1 EA INFUS.SET MC ONE (15:12)
[2021-12-29] MEDS ORDERED: METOPROLOL TARTRATE INJ 5 MG/5 ML AMPUL ONE (15:12)
[2021-12-29] MEDS: METOPROLOL TARTRATE INJ 5 MG/5 ML AMPUL IVP PRN ×2 (15:17→15:22)
[2021-12-29 15:22] VITALS: BP 127/67
[2021-12-29] MEDS ORDERED: NITROGLYCERIN 0.4 MG/TAB BOTTLE SL ONE (15:30)
[2021-12-29] MEDS ORDERED: PANT40TA2 PO (17:54)
--- NOTE | 2021-12-29 18:56 | NUR ---
RN MS NOTES PT AWAKE, ALERT AND ORIENTED, NO COMPLAINT OF PAIN OR ANY DISCOMFORT, COMPLETED EGD AND CTCA TODAY, WALKING INSIDE HIS ROOM, EAGER TO GO HOME, CTCA RESULT FORWARDED TO DR. MARROQUIN, DISCHARGE ORDER GIVEN BY DR. TOMLINSON, DISCHARGE AND MEDICATION INSTRUCTIONS PROVIDED TO PT, VERBALIZED UNDERSTANDING, BELONGINGS ACCOUNTED FOR, CD OF ALL IMAGING GIVEN TO PT, ASSISTED TO HOSPITAL LOBBY, PT TO BE PICKED UP BY HIS , IN STABLE CONDITION.
== END 2021-12-29 19:10 | disposition home or self-care (01) | DRG 241 ==
LOC: ER 10:00 → TELE 13:42 → MED 12-29 12:00
PROVIDERS: ADMIT Internal Medicine; ATTEND Internal Medicine
PROC: 0DB68ZX Excision of Stomach, Via Natural or Artificial Opening Endoscopic, Diagnostic (ICD-10-PCS; principal; 2021-12-29)
DX: K29.70 Gastritis, unspecified, without bleeding (principal); K76.0 Fatty (change of) liver, not elsewhere classified; I71.2 Thoracic aortic aneurysm, without rupture; E66.01 Morbid (severe) obesity due to excess calories; I10 Essential (primary) hypertension; Z68.41 Body mass index [BMI] 40.0-44.9, adult; E78.5 Hyperlipidemia, unspecified; G47.33 Obstructive sleep apnea (adult) (pediatric); I25.10 Atherosclerotic heart disease of native coronary artery without angina pectoris; Z91.14 Patient's other noncompliance with medication regimen; Z20.822 Contact with and (suspected) exposure to COVID-19; R07.9 Chest pain, unspecified
CPT/HCPCS: 36415; 71045-TC; 75574; 76705-TC; 80048-TC; 80061-TC; 80076-TC; 81001; 83605-TC; 83690-TC; 83735-TC; 84100-TC; 84484-TC; 85025-TC; 85730-TC; 87081-TC; 93307-TC; G0378; J2270; J2405; J2704; J3490; J7030; J7050; Q9967

== ENCOUNTER 2022-08-22 09:58 | Inpatient (IN) | payer BC, OTHER ==
[~2022-08-22] VITALS: Ht 172.7 cm; Wt 135.2 kg
[~2022-08-22 09:58] MED LIST changes: -NIFE-35 PO; +PANT40TA2 PO
--- NOTE | 2022-08-22 10:00 | NUR ---
BIBS FOR ABD PAIN. A/O X 3, ABLE TO MAKE NEEDS KNOWN, TOLERATING WELL ON ROOM AIR.
--- NOTE | 2022-08-22 10:26 | NUR ---
BLOOD SAMPLE OBTAINED
--- NOTE | 2022-08-22 10:26 | NUR ---
ESTABLISHED IV LINE 20 G LEFT AC
[2022-08-22] MEDS ORDERED: ONDANSETRON HCL/PF 4 MG/2 ML VIAL IVP ONE (10:30)
[2022-08-22] MEDS ORDERED: HYDROMORPHONE INJ 2 MG/ML DISP.SYRIN IV ONE ×2 (10:30→12:00)
[2022-08-22] MEDS ORDERED: FAMOTIDINE/PF INJ 20 MG/2 ML VIAL IV ONE ×2 (10:30→10:41)
--- NOTE | 2022-08-22 10:35 | NUR ---
[facility]
[2022-08-22] MEDS ORDERED: ONDANSETRON HCL/PF 4 MG/2 ML VIAL ONE (10:40)
--- NOTE | 2022-08-22 10:40 | NUR ---
PT BACK FROM CT
[2022-08-22] MEDS ORDERED: HYDROMORPHONE 1 MG/1 ML DISP.SYRIN ONE ×2 (10:41→12:03)
[2022-08-22 11:25] LABS: CALCIUM, SERUM 9.7 mg/dL (8.5-10.1); CARBON DIOXIDE 25 mmol/L (21-32); CHLORIDE 102 mmol/L (98-107); CREATININE 1.1 mg/dL (0.6-1.3); GLUCOSE 191 mg/dL (74-106); POTASSIUM 3.9 mmol/L (3.5-5.1); SODIUM SERUM 140 mmol/L (136-145); UREA NITROGEN, BLOOD 22 mg/dL (7-18)
[2022-08-22 11:31] LABS: ALANINE AMINOTRANSFERASE 57 U/L (12-78); ALBUMIN 4.2 g/dL (3.4-5.0); ALKALINE PHOSPHATASE 57 U/L (46-116); ASPARTATE AMINOTRANSFERASE 28 U/L (15-37); BILIRUBIN,DIRECT 0.1 mg/dL (0.0-0.2); BILIRUBIN,TOTAL 0.4 mg/dL (0.2-1.0); LIPASE 46 U/L (73-393); TOTAL PROTEIN, SERUM 8.6 g/dL (6.4-8.2)
[2022-08-22 11:38] LABS: BASOPHILS % (AUTO) 0.2 % (0.0-2.0); EOSINOPHILS % (AUTO) 0.3 % (0.0-6.0); HEMATOCRIT 41 % (39-51); HEMOGLOBIN 13.5 g/dL (13.5-17.5); LYMPHOCYTES # (AUTO) 1.1 K/uL (0.8-4.8); LYMPHOCYTES % (AUTO) 11.2 % (20.0-44.0); MEAN CORPUSCULAR HGB CONC 33 g/dl (31.0-36.0); MEAN CORPUSCULAR VOLUME 87 fL (80-96); MONOCYTES # (AUTO) 0.3 K/uL (0.1-1.30); MONOCYTES % (AUTO) 3.7 % (2.0-12.0); NEUTROPHILS # (AUTO) 8.1 K/uL (1.8-8.9); NEUTROPHILS % (AUTO) 84.6 % (43.0-81.0); PLATELET COUNT (AUTO) 255 K/uL (150-450); RED BLOOD CELL COUNT(AUTO) 4.66 MIL/uL (4.5-6.0); WHITE BLOOD COUNT (AUTO) 9.5 K/uL (4.3-11.0)
[2022-08-22] MEDS ORDERED: MAG HYDROX/AL HYDROX/SIMETH 30 ML UDC PO ONE (12:00)
[2022-08-22] MEDS ORDERED: LIDOCAINE VISCOUS 2% UD 15 ML UDC MM ONE (12:00)
[2022-08-22] MEDS ORDERED: IV NS 0.9% 1,000 ML BAG IV ONE (12:00)
[2022-08-22] MEDS ORDERED: MAG HYDROX/AL HYDROX/SIMETH 30 ML UDC ONE (12:02)
[2022-08-22] MEDS ORDERED: LIDOCAINE VISCOUS 2% UD 15 ML UDC ONE (12:03)
[2022-08-22 14:10] LABS: BILIRUBIN,URINE NEGATIVE (NEGATIVE); COLOR,URINE YELLOW (YELLOW); LEUKOCYTE ESTERASE ,URINE NEGATIVE (NEGATIVE); NITRITE, URINE POSITIVE (NEGATIVE); PH,URINE 5.5 (5.0-8.0); PROTEIN,URINE 3+ mg/dl (NEGATIVE); UGLUCOSE NEGATIVE (NEGATIVE); UROBILINOGEN,URINE 0.2 EU/dL (0.2)
[2022-08-22 14:16] LABS: BACTERIA,URINE Few /HPF (None Seen); SQUAMOUS EPITHELIAL CELL,UR Few /HPF (None Seen); URIC ACID CRYSTALS,URINE Rare /HPF (None Seen)
[2022-08-22] MEDS ORDERED: LISI20TA30 PO (14:51)
[2022-08-22] MEDS ORDERED: HYDROMORPHONE INJ 2 MG/ML DISP.SYRIN IV PRN (15:30)
[2022-08-22] MEDS ORDERED: MAG HYDROX/AL HYDROX/SIMETH 30 ML UDC PO PRN (15:30)
[2022-08-22] MEDS ORDERED: ZOLPIDEM TARTRATE 5 MG TABLET PO PRN (15:30)
[2022-08-22] MEDS ORDERED: MAGNESIUM HYDROXIDE 30 ML UDC PO PRN (15:30)
[2022-08-22] MEDS ORDERED: ONDANSETRON HCL/PF 4 MG/2 ML VIAL IVP PRN (15:30)
[2022-08-22] MEDS ORDERED: Z GUARD REMEDY 4 OZ OINT TP PRN (15:30)
[2022-08-22] MEDS ORDERED: ACETAMINOPHEN 325 MG TABLET PO PRN (15:30)
--- NOTE | 2022-08-22 15:33 | NUR ---
ROOM 325-2 ADMITTING AWARE
--- NOTE | 2022-08-22 15:42 | NUR ---
REPORT GIVEN BRANDT JULIO
[2022-08-22] MEDS: IV NS 0.9% 1,000 ML IV PRN (17:41)
--- NOTE | 2022-08-22 17:45 | NUR ---
RN NOTE- ARRIVED FROM ED FOR ADMISSION, ACUTE ABDOMEN/GASTRITIS/DIVERTICULOSIS. BEGIN ADMISSION PROCESS
--- NOTE | 2022-08-22 17:55 | NUR ---
CASKET ASSEMBLER NOTE- 61 Y/O MALE PATIENT ADMITTED TO [facility] FOR GASTRITIS / DIVERTICULOSIS. PT W INCREASING AND PAIN X 2 DAYS. PMHX- OBESITY, HTN, HLD, ANEMIA AND HERNIA REPAIR. PT IS FC WITH NKA. AOX4, INTERACTIVE, CALM, AFFECT APPROPRIATE. SKIN INTACT THROUGHOUT. VS - BP- 144/86, HR- 72, RR- 18, T- 97.8, 02 SATS 99% RA. ABDOMEN- DISTENDED, FIRM WITH HYPOACTIVE BOWEL SOUNDS TO ALL FOUR QUADRANTS. NO REBOUND TENDERNESS, NO WARMTH A MCBURNEYS POINT, NO ORGANOMEGALY NOTED. CHEST- CLEAR THROUGHOUT, PERIPHERAL PULSES GOOD, NO OTHER PHYSICAL FINDINGS. LABS - CHEM UNREMARKABLE, H/H WNL. PT TO BE NPO, IV TO LAC#20G - NS AT 100/HR. PAIN MANAGEMENT, MONITOR / ASSIST, SIDE RAILS UP, BED LOCKED, ORDERS RECEIVED / COMPLIED
[2022-08-22 18:36] VITALS: BP 144/86
--- NOTE | 2022-08-22 19:05 | NUR ---
MS RN OPENING NOTE PT IS LYING IN BED WITH HIS DAUGHTER AT HIS BEDSIDE. HE IS ALERT AND ORIENTED, AO X 4. PT IS ON RA, TOLERATED WELL. NO S/S OF DISTRESS OR SOB. PT IS ABLE TO MAKE HIS NEEDS KNOWN. IV ACCESS IS AT HIS L AC, #20G,. INFUSING NS @ 100 ML/HR. IV SITE IS PATENT AND INTACT. PT DENIES OF HAVING PAIN AT THIS MOMENT. PATIENT IS ON NPO. EDUCATED PT ABOUT NPO, PT VERBALIZED UNDERSTANDING. SAFETY MEASURES ARE IN PLACED: BED IN LOWEST AND LOCKED POSITION; SIDE RAILS UP X 2; CALL LIGHT AND TABLE ARE WITHIN REACH. WILL CONTINUE MONITORING THE PT AND PROVIDE THE CARE HE NEEDS.
[2022-08-22 20:00] VITALS: BP 147/78
[2022-08-23] MEDS: IV NS 0.9% 1,000 ML IV PRN (03:32)
[2022-08-23 04:00] VITALS: BP 106/64
[2022-08-23 06:19] LABS: BASOPHILS % (AUTO) 0.1 % (0.0-2.0); EOSINOPHILS % (AUTO) 0.1 % (0.0-6.0); HEMATOCRIT 38 % (39-51); HEMOGLOBIN 12.2 g/dL (13.5-17.5); LYMPHOCYTES % (AUTO) 5.7 % (20.0-44.0); MEAN CORPUSCULAR HGB CONC 32 g/dl (31.0-36.0); MEAN CORPUSCULAR VOLUME 89 fL (80-96); MONOCYTES # (AUTO) 1.3 K/uL (0.1-1.30); MONOCYTES % (AUTO) 7.2 % (2.0-12.0); NEUTROPHILS # (AUTO) 15.5 K/uL (1.8-8.9); NEUTROPHILS % (AUTO) 86.9 % (43.0-81.0); PLATELET COUNT (AUTO) 255 K/uL (150-450); RED BLOOD CELL COUNT(AUTO) 4.25 MIL/uL (4.5-6.0); WHITE BLOOD COUNT (AUTO) 17.8 K/uL (4.3-11.0)
[2022-08-23 06:58] LABS: ALBUMIN 3.4 g/dL (3.4-5.0); BILIRUBIN,TOTAL 0.7 mg/dL (0.2-1.0); CALCIUM, SERUM 8.7 mg/dL (8.5-10.1); CREATININE 1.1 mg/dL (0.6-1.3); MAGNESIUM 2.2 mg/dL (1.8-2.4); PHOSPHORUS 2.8 mg/dL (2.5-4.9); TOTAL PROTEIN, SERUM 7.5 g/dL (6.4-8.2)
[2022-08-23 07:00] VITALS: BP 132/76
--- NOTE | 2022-08-23 07:05 | NUR ---
MS RN CLOSING NOTE PT IS LYING IN BED WITH HIS DAUGHTER AT HIS BEDSIDE. HE IS ALERT AND ORIENTED, AO X 4. PT IS ON RA, TOLERATED WELL. NO S/S OF DISTRESS OR SOB. PT IS ABLE TO MAKE HIS NEEDS KNOWN. IV ACCESS IS AT HIS L AC, #20G,. INFUSING NS @ 100 ML/HR. IV SITE IS PATENT AND INTACT. PT DENIES OF HAVING PAIN AT THIS MOMENT. PATIENT HAS BEEN ON NPO SINCE MIDNIGHT. SAFETY MEASURES ARE IN PLACED: BED IN LOWEST AND LOCKED POSITION; SIDE RAILS UP X 2; CALL LIGHT AND TABLE ARE WITHIN REACH. WILL ENDORSE NEXT SHIFT NURSE FOR CONTINUING PT CARE.
--- NOTE | 2022-08-23 07:15 | NUR ---
RN OPENING NOTE- PT IN BED, HE IS ALERT AND ORIENTED, AO X 4. PT IS ON RA, TOLERATED WELL. NO S/S OF DISTRESS OR SOB. PT IS ABLE TO MAKE HIS NEEDS KNOWN. IV ACCESS IS AT HIS L AC, #20G,. INFUSING NS @ 100 ML/HR. IV SITE IS PATENT AND INTACT. PT DENIES OF HAVING PAIN AT THIS MOMENT. PATIENT IS ON NPO. SAFETY MEASURES ARE IN PLACED: BED IN LOWEST AND LOCKED POSITION; SIDE RAILS UP X 2; CALL LIGHT AND TABLE ARE WITHIN REACH. MONITOR / ASSIST
[2022-08-23] MEDS ORDERED: PANTOPRAZOLE 40 MG VIAL IV SCH (09:00)
[2022-08-23] MEDS: LISINOPRIL (20MG) 20 MG TABLET PO SCH (09:17)
[2022-08-23] MEDS ORDERED: PIPERACILLIN /TAZOBACTAM 3.375 G in IV D5W 50 ML IV SCH (12:00)
[2022-08-23] MEDS: PIPERACILLIN /TAZOBACTAM 3.375 G in IV D5W 100 ML IV SCH ×2 (13:05→20:17)
[2022-08-23 16:29] VITALS: BP 132/67
--- NOTE | 2022-08-23 18:44 | NUR ---
RN CLOSING NOTE- PT IN BED, HE IS ALERT AND ORIENTED, AO X 4. PT IS ON RA, TOLERATED WELL. NO S/S OF DISTRESS OR SOB. PT IS ABLE TO MAKE HIS NEEDS KNOWN. IV ACCESS IS AT HIS L AC, #20G,. INFUSING NS @ 100 ML/HR. IV SITE IS PATENT AND INTACT. PT DENIES OF HAVING PAIN AT THIS MOMENT. PATIENT IS ON CLEARS, SAFETY MEASURES ARE IN PLACED: BED IN LOWEST AND LOCKED POSITION; SIDE RAILS UP X 2; CALL LIGHT AND TABLE ARE WITHIN REACH. MONITOR / ASSIST
--- NOTE | 2022-08-23 19:31 | NUR ---
RN OPENING NOTE PATIENT AWAKE IN BED. A/OX4. NO S/S OF DISTRESS, BREATHING WITHOUT DIFFICULTY ON ROOM AIR. LAC #20 INTACT AND PATENT W/ NS 100ML/HR. SAFETY MEASURES IN PLACE: BED LOCKED AND AT LOWEST POSITION, RAILS UP X2, CALL PINEDA WITHIN REACH. WILL CONTINUE TO MONITOR PATIENT.
[2022-08-23 20:00] VITALS: BP 167/89
[2022-08-23] MEDS ORDERED: ZOLPIDEM TARTRATE 5 MG TABLET PO PRN (21:00)
[2022-08-23] MEDS ORDERED: MENTHOL/CETYLPYRD (CEPACOL) 1 LOZ LOZENGE PO PRN (21:00)
[2022-08-23] MEDS ORDERED: GUAIFENESIN/D-METHORPHAN HB 5 ML UDC PO PRN (21:30)
[2022-08-24] MEDS: PIPERACILLIN /TAZOBACTAM 3.375 G in IV D5W 100 ML IV SCH ×3 (03:23→20:02)
[2022-08-24 06:34] LABS: BASOPHILS % (AUTO) 0.1 % (0.0-2.0); EOSINOPHILS % (AUTO) 0.1 % (0.0-6.0); HEMATOCRIT 37 % (39-51); HEMOGLOBIN 12.1 g/dL (13.5-17.5); LYMPHOCYTES # (AUTO) 1.3 K/uL (0.8-4.8); LYMPHOCYTES % (AUTO) 6.8 % (20.0-44.0); MEAN CORPUSCULAR HGB CONC 33 g/dl (31.0-36.0); MEAN CORPUSCULAR VOLUME 89 fL (80-96); MONOCYTES # (AUTO) 1.5 K/uL (0.1-1.30); MONOCYTES % (AUTO) 7.5 % (2.0-12.0); NEUTROPHILS # (AUTO) 16.7 K/uL (1.8-8.9); NEUTROPHILS % (AUTO) 85.5 % (43.0-81.0); PLATELET COUNT (AUTO) 203 K/uL (150-450); RED BLOOD CELL COUNT(AUTO) 4.15 MIL/uL (4.5-6.0); WHITE BLOOD COUNT (AUTO) 19.5 K/uL (4.3-11.0)
--- NOTE | 2022-08-24 06:47 | NUR ---
RN CLOSING NOTE PATIENT RESTING IN BED. A/OX4. NO S/S OF DISTRESS, BREATHING WITHOUT DIFFICULTY ON ROOM AIR. LAC #20 INTACT AND PATENT W/ NS 100ML/HR. SAFETY MEASURES IN PLACE: BED LOCKED AND AT LOWEST POSITION, RAILS UP X2, CALL PINEDA WITHIN REACH. WILL ENDORSE TO NEXT SHIFT FOR HELGA.
[2022-08-24 07:03] LABS: BILIRUBIN,TOTAL 0.8 mg/dL (0.2-1.0); CALCIUM, SERUM 8.8 mg/dL (8.5-10.1); CREATININE 1.1 mg/dL (0.6-1.3); POTASSIUM 3.9 mmol/L (3.5-5.1); TOTAL PROTEIN, SERUM 7.2 g/dL (6.4-8.2)
[2022-08-24 07:30] VITALS: BP 121/69
[2022-08-24] MEDS: LISINOPRIL (20MG) 20 MG TABLET PO SCH (08:37)
[2022-08-24] MEDS: PANTOPRAZOLE 40 MG/PACK PACK PO SCH (08:37)
[2022-08-24] MEDS: IV NS 0.9% 1,000 ML IV PRN (11:02)
[2022-08-24 16:00] VITALS: BP 107/66
--- NOTE | 2022-08-24 18:36 | NUR ---
END OF SHIFT SUMMARY PATIENT IS A/OX 4. ON RA SATURATING WELL. ABLE TO MAKE NEEDS KNOWN. AMBULATORY WITH STEADY GAIT. INDEPENDENT WITH REPOSITIONING. IV ACCESS ON L AC#100 ML/HR. SAFETY MEASURES MAINTAINED. BED IN LOWEST POSITION, BRAKES LOCKED. SIDE RAILS UP X2. CALL LIGHT WITHIN REACH. WILL ENDORSE CONTINUITY OF CARE TO ONCOMING SHIFT.
--- NOTE | 2022-08-24 19:20 | NUR ---
MS RN OPENING NOTE RECEIVED PATIENT FROM AM NURSE; PATIENT IS A/OX 4, ABLE TO MAKE NEEDS KNOWN; STABLE ON ROOM AIR, BREATHING EVENLY AND NO S/S OF DISTRESS NOTED; AMBULATORY WITH STEADY GAIT, INDEPENDENT; WITH IV ACCESS ON LAC RUNNING WITHN NORMAL SALINE AT 100 ML/HR; SAFETY MEASURES MAINTAINED. BED LOCKED IN LOWEST POSITION, SIDE RAILS UP X2, CALL LIGHT AND TABLE WITHIN REACH; WILL CONTINUE TO MONITOR THROUGHOUT SHIFT
[2022-08-24 20:00] VITALS: BP 104/68
--- NOTE | 2022-08-24 20:50 | NUR ---
MS RN NOTE DR PAYTON PERSONALLY INFORMED ME TO GIVE CEPACOL TO PATIENT; ADMINISTERED CEPACOL AT 2047H; PATIENT TOLERATED WELL
[2022-08-24] MEDS ORDERED: AZITHROMYCIN 250 MG TABLET PO SCH (21:00)
[2022-08-24] MEDS ORDERED: BENZONATATE 100 MG CAPSULE PO PRN (21:00)
[2022-08-24] MEDS: METRONIDAZOLE 500 MG TABLET PO SCH (21:22)
--- NOTE | 2022-08-24 21:30 | NUR ---
MS RN NOTE DR DISCONTINUED ZOSYN AND ORDERED NEW ANTIBIOTICS NAMELY: AZITHROMYCIN AND METRONIDAZOLE FOR PATIENT; INFORMED CHARGE NURSE AND ADMINISTERED THE ANTIBIOTICS WITH 1 HOUR INTERVAL; PATIENT TOLERATED WELL; WILL CONTINUE TO MONITOR
[2022-08-25] MEDS: METRONIDAZOLE 500 MG TABLET PO SCH ×2 (04:49→12:41)
--- NOTE | 2022-08-25 07:25 | NUR ---
MS RN CLOSING NOTE PATIENT RESTING IN BED, A/OX 4, ABLE TO MAKE NEEDS KNOWN; STABLE ON ROOM AIR, BREATHING EVENLY AND NO S/S OF DISTRESS NOTED; AMBULATORY WITH STEADY GAIT, INDEPENDENT; WITH IV ACCESS ON LAC SALINE LOCK, PATIENT DOESN'T WANT TO BE HOOKED ON INTRAVENOUS FLUIDS STATING THAT HE HAS BEEN DRINKING A LOT; ADMINISTERED MEDICATIONS PRESCRIBED; PATIENT'S NEEDS ATTENDED; SAFETY MEASURES MAINTAINED. BED LOCKED IN LOWEST POSITION, SIDE RAILS UP X2, CALL LIGHT AND TABLE WITHIN REACH; ENDORSED TO AM SHIFT NURSE FOR HELGA.
--- NOTE | 2022-08-25 07:37 | NUR ---
MS RN OPENING NOTE RECEIVED PATIENT AWAKE IN BED, PATIENT IS A/OX 4, ABLE TO MAKE NEEDS KNOWN; STABLE ON ROOM AIR, BREATHING EVENLY AND NO S/S OF DISTRESS NOTED; AMBULATORY WITH STEADY GAIT, INDEPENDENT; WITH IV ACCESS ON LAC G#20; SAFETY MEASURES MAINTAINED. BED LOCKED IN LOWEST POSITION, SIDE RAILS UP X2, CALL LIGHT AND TABLE WITHIN REACH; WILL CONTINUE TO MONITOR THROUGHOUT SHIFT.
[2022-08-25 08:00] VITALS: BP 130/83
--- NOTE | 2022-08-25 08:07 | NUR ---
RN NOTES PATIENT ASKING FOR MILK OF MAGNESIA. INFORMED DR. ROBERSON AND HE ORDERED MILK OF MAGNESIA, DAILY PRN.
[2022-08-25] MEDS: PANTOPRAZOLE 40 MG/PACK PACK PO SCH (08:32)
[2022-08-25 08:33] VITALS: BP 130/83
[2022-08-25] MEDS: LISINOPRIL (20MG) 20 MG TABLET PO SCH (08:33)
[2022-08-25] MEDS ORDERED: MAGNESIUM HYDROXIDE 30 ML UDC PO PRN (09:00)
[2022-08-25 09:12] LABS: BASOPHILS % (AUTO) 0.1 % (0.0-2.0); EOSINOPHILS % (AUTO) 0.9 % (0.0-6.0); HEMATOCRIT 38 % (39-51); LYMPHOCYTES # (AUTO) 1.2 K/uL (0.8-4.8); LYMPHOCYTES % (AUTO) 7.8 % (20.0-44.0); MEAN CORPUSCULAR HGB CONC 32 g/dl (31.0-36.0); MEAN CORPUSCULAR VOLUME 90 fL (80-96); MONOCYTES % (AUTO) 6.8 % (2.0-12.0); NEUTROPHILS # (AUTO) 12.5 K/uL (1.8-8.9); NEUTROPHILS % (AUTO) 84.4 % (43.0-81.0); PLATELET COUNT (AUTO) 228 K/uL (150-450); WHITE BLOOD COUNT (AUTO) 14.8 K/uL (4.3-11.0)
[2022-08-25 09:36] LABS: CALCIUM, SERUM 9.1 mg/dL (8.5-10.1); POTASSIUM 3.8 mmol/L (3.5-5.1)
[2022-08-25 09:42] LABS: ALBUMIN 2.9 g/dL (3.4-5.0); BILIRUBIN,TOTAL 0.6 mg/dL (0.2-1.0); TOTAL PROTEIN, SERUM 7.6 g/dL (6.4-8.2)
[2022-08-25] MEDS ORDERED: DOCUSATE SODIUM 100 MG CAPSULE PO ONE (11:00)
[2022-08-25] MEDS ORDERED: LACTULOSE 10 G/15 ML UDC (PYXIS) PO ONE (11:00)
[2022-08-25] MEDS ORDERED: METR500T PO (12:38)
[2022-08-25] MEDS ORDERED: AZIT250T PO (12:38)
--- NOTE | 2022-08-25 14:05 | NUR ---
RN DISCHARGED NOTES PATIENT DISCHARGED HOME IN STABLE CONDITION. A/O X4. ABLE TO MAKE NEEDS KNOWN. ON RA, TOLERATING WELL, NO SOB NOTED. ALL BELONGINGS ACCOUNTED FOR AND PT SIGNED BELONGINGS LIST. IV ACCESS ON LAC G#20 REMOVED WITH NO ACTIVE BLEEDING NOTED, DRY DRESSING APPLIED AT SITE. HEALTH TEACHINGS/DISCHARGE INSTRUCTIONS GIVEN TO PATIENT, VERBALIZED UNDERSTANDING. NAME ARMBAND REMOVED. PT LEFT UNIT @ 1400 VIA ACCOMPANIED BY NURSE JASSI AND HIS JAREN. AND CHARGE NURSE AWARE OF D/C.
[2022-08-25] MEDS ORDERED: AZITHROMYCIN 250 MG TABLET PO SCH (21:00)
== END 2022-08-25 14:05 | disposition home or self-care (01) | DRG 392 ==
LOC: ER 10:10 → MED 16:08
PROVIDERS: ADMIT Nurse Practitioner Acute Care; ATTEND Internal Medicine
DX: K29.70 Gastritis, unspecified, without bleeding (principal); Z68.42 Body mass index [BMI] 45.0-49.9, adult; K57.30 Diverticulosis of large intestine without perforation or abscess without bleeding; K76.0 Fatty (change of) liver, not elsewhere classified; E66.01 Morbid (severe) obesity due to excess calories; D72.829 Elevated white blood cell count, unspecified; I10 Essential (primary) hypertension; E78.5 Hyperlipidemia, unspecified; N28.1 Cyst of kidney, acquired; K82.8 Other specified diseases of gallbladder
CPT/HCPCS: 36415; 71045-TC; 76705-TC; 80048-TC; 80053-TC; 80076-TC; 81001; 82962-TC; 83690-TC; 83735-TC; 84100-TC; 84484-TC; 85025-TC; 87081-TC; 87086-TC; A4223; C9113; C9803; G0378; J1170; J2405; J2543; J3490; J7030; J7060